=== PATIENT | male | born 1985 | race African-American/Black ===

== ENCOUNTER 2021-11-22 23:27 | Emergency (ER) | payer SELFPAY ==
[~2021-11-22] VITALS: Ht 185.4 cm; Wt 86.2 kg
[2021-11-23 01:40] VITALS: BP 137/78
--- NOTE | 2021-11-23 01:49 | NUR ---
PATIENT CALLED POL[employer] TO FILL REPORT. WHEN ASKED IF PT WOULD LIKE US TO FOLLOW UP/ REPORT CASE, PT DECLINED, AND WOULD NOT LIKE POLICE TO BE CALLED AT THIS TIME.
--- NOTE | 2021-11-23 01:56 | NUR ---
PT TAKEN TO CT VIA [facility]
[2021-11-23] MEDS ORDERED: IBUPROFEN 400 MG TABLET ONE (01:57)
--- NOTE | 2021-11-23 01:57 | NUR ---
PT RETURNED TO ER BED [address]
[2021-11-23] MEDS ORDERED: IBUPROFEN 400 MG TABLET PO ONE (02:00)
== END 2021-11-23 04:01 | disposition home or self-care (01) ==
LOC: ER 23:35
DX: S93.491A Sprain of other ligament of right ankle, initial encounter (principal); S09.90XA Unspecified injury of head, initial encounter; Z60.2 Problems related to living alone; Y04.0XXA Assault by unarmed brawl or fight, initial encounter; Y93.89 Activity, other specified; Y92.89 Other specified places as the place of occurrence of the external cause; Y99.8 Other external cause status
CPT/HCPCS: 70450-TC; 73610-TC

== ENCOUNTER 2022-07-09 14:51 | Emergency (ER) | payer MEDICAID, OTHER ==
[~2022-07-09] VITALS: Ht 185.4 cm; Wt 90.7 kg
[2022-07-09 15:23] VITALS: BP 126/70
--- NOTE | 2022-07-09 15:57 | NUR ---
patient left before seen by
== END 2022-07-09 15:57 | disposition left against medical advice (07) ==
LOC: ER 14:53
DX: Z53.21 Procedure and treatment not carried out due to patient leaving prior to being seen by health care provider (principal)